=== PATIENT | male | born 1965 | race African-American/Black ===

== ENCOUNTER → 2024-04-02 | Outpatient (CLI) | payer OTHER | LOC: LABPRL 12:34 | PROVIDERS: ATTEND Family Medicine | CPT/HCPCS: 80053; 80061; 83036; 85027 ==

== ENCOUNTER → 2024-04-15 | Outpatient (CLI) | payer OTHER ==
[2024-04-15 16:27] LABS: Blood Urea Nitrogen 11.6 mg/dL (9.0-27.0); Calcium 9.7 mg/dL (8.7-10.3); Carbon Dioxide 24.9 mmol/L (21.6-31.8); Chloride 99 mmol/L (96-109); Glucose 107 mg/dL (70-110); Potassium 3.9 mmol/L (3.5-5.5); Sodium 138 mmol/L (135-145)
== END | disposition home or self-care (01) ==
LOC: LABWHC1 09:54
PROVIDERS: ATTEND Family Medicine
DX: E87.5 Hyperkalemia (principal)
CPT/HCPCS: 36415; 80048